=== PATIENT | male | born 1995 | race Caucasian/White ===

== ENCOUNTER 2020-07-03 18:07 | Emergency (ER) | payer OTHER ==
[~2020-07-03] VITALS: Ht 175.3 cm; Wt 71.9 kg
[2020-07-03 18:08] VITALS: BP 128/73
--- NOTE | 2020-07-03 19:10 | NUR ---
PT CALLED BACK FROM [facility], NOT IN LOBBY
== END 2020-07-03 19:37 | disposition home or self-care (01) ==
LOC: ED 19:00
DX: S83.92XA Sprain of unspecified site of left knee, initial encounter (principal); F17.200 Nicotine dependence, unspecified, uncomplicated; X50.0XXA Overexertion from strenuous movement or load, initial encounter; Y93.89 Activity, other specified; Y92.89 Other specified places as the place of occurrence of the external cause; Y99.8 Other external cause status
CPT/HCPCS: 29505; 99283